=== PATIENT | female | born 1975 | race Caucasian/White ===

== ENCOUNTER 2023-12-11 07:35 | Day surgery (SDC) | payer MEDICAID ==
[~2023-12-11] VITALS: Ht 165.1 cm; Wt 97.5 kg
[2023-12-11] MEDS ORDERED: SIMETHICONE 40 MG/0.6 ML ML ONE (07:43)
[2023-12-11] MEDS ORDERED: MIDAZOLAM HCL 5 MG/5 ML VIAL ONE (07:44)
[2023-12-11] MEDS ORDERED: MEPERIDINE 100 MG INJ. 100 MG/ML VIAL ONE (07:44)
[2023-12-11 14:57] VITALS: BP_SYST 99; PULSE 63; RESP 16
== END 2023-12-11 10:48 | disposition home or self-care (01) ==
LOC: SDS 07:35 → SMU 07:36 → SDS 10:48
PROVIDERS: ATTEND Internal Medicine Gastroenterology
DX: Z12.11 Encounter for screening for malignant neoplasm of colon (principal); R13.10 Dysphagia, unspecified; K29.50 Unspecified chronic gastritis without bleeding; K22.2 Esophageal obstruction; K21.9 Gastro-esophageal reflux disease without esophagitis; K44.9 Diaphragmatic hernia without obstruction or gangrene; K64.8 Other hemorrhoids; M19.90 Unspecified osteoarthritis, unspecified site; Z87.891 Personal history of nicotine dependence; Z79.899 Other long term (current) drug therapy
CPT/HCPCS: 45378; 43239; 43248; 99152; 87081; 36415; 88305; 88312; 88313; 99153; G0378; J2250; J2175; C1769

== ENCOUNTER 2024-07-29 06:13 | Day surgery (SDC) | payer MEDICAID ==
[~2024-07-29] VITALS: Ht 162.6 cm; Wt 103.9 kg
[2024-07-29 08:00] VITALS: BP_SYST 143; PULSE 69; RESP 16; TEMP 98.2; O2SAT 100
== END 2024-07-29 07:47 | disposition home or self-care (01) ==
LOC: SDS 06:13 → SMU 06:14 → SDS 07:47
PROVIDERS: ATTEND Urology
DX: N20.1 Calculus of ureter (principal); Z53.8 Procedure and treatment not carried out for other reasons; K21.9 Gastro-esophageal reflux disease without esophagitis; E03.9 Hypothyroidism, unspecified; M19.90 Unspecified osteoarthritis, unspecified site; Z90.710 Acquired absence of both cervix and uterus; Z79.890 Hormone replacement therapy; Z79.899 Other long term (current) drug therapy
CPT/HCPCS: 87081

== ENCOUNTER 2024-08-08 05:40 | Day surgery (SDC) | payer MEDICAID ==
[~2024-08-08] VITALS: Ht 162.6 cm; Wt 103.9 kg
[2024-08-08] MEDS ORDERED: TAMS-11 PO (07:51)
[2024-08-08] MEDS ORDERED: fentaNYL CITRATE/PF 100 MCG/2 ML AMP ONE (08:03)
[2024-08-08] MEDS ORDERED: MIDAZOLAM HCL 2 MG/2 ML VIAL (VERSED) ONE (08:03)
[2024-08-08] MEDS ORDERED: NS IRRIG SOLN 1000 ML IR ONE (08:03)
[2024-08-08] MEDS ORDERED: LR 1,000 ML IV.SOLN IV ONE (08:03)
[2024-08-08] MEDS ORDERED: ONDANSETRON HCL 4 MG/2 ML VIAL ONE (08:03)
[2024-08-08] MEDS ORDERED: PROPOFOL 200MG/ 20ML VIAL (DIPRIVAN) IV ONE (08:03)
[2024-08-08] MEDS ORDERED: SEVOFLURANE 15 MIN GAS INH ONE (08:03)
[2024-08-08] MEDS ORDERED: PHENYLEPHRINE HCL 10 MG/ML VIAL (NEOSYNEPHRINE) ONE (08:03)
[2024-08-08] MEDS ORDERED: METOCLOPRAMIDE HCL 10 MG/2 ML VIAL ONE (08:03)
[2024-08-08] MEDS ORDERED: ceFAZolin SODIUM 1 GM VIAL ONE (08:03)
[2024-08-08] MEDS ORDERED: ePHEDrine sulfate 50 MG/ML VIAL ONE (08:03)
[2024-08-08] MEDS ORDERED: LR 1,000 ML IV SCH (08:15)
[2024-08-08] MEDS ORDERED: KETOROLAC TROMETHAMINE 30 MG VIAL IVP PRN (08:15)
[2024-08-08] MEDS ORDERED: ONDANSETRON HCL 4 MG/2 ML VIAL IVP PRN (08:15)
[2024-08-08 08:30] VITALS: O2SAT 98
[2024-08-08 15:24] VITALS: BP_SYST 133; PULSE 69; RESP 18
== END 2024-08-08 10:37 | disposition home or self-care (01) ==
LOC: SDS 05:40 → SMU 05:40 → SDS 10:37
PROVIDERS: ATTEND Urology
DX: N20.1 Calculus of ureter (principal); K21.9 Gastro-esophageal reflux disease without esophagitis; E03.9 Hypothyroidism, unspecified; M19.90 Unspecified osteoarthritis, unspecified site; Z79.890 Hormone replacement therapy; Z79.899 Other long term (current) drug therapy
CPT/HCPCS: 50590; J0690; J2765; J2250; J2405; J2704; J3010; J7120